=== PATIENT | female | born 2000 | race African-American/Black ===

== ENCOUNTER 2022-06-30 09:20 | Emergency (ER) | payer BC, SELFPAY ==
--- NOTE | ~2022-06-30 | XR_ITS ---
EXAMINATION: XR chest 2V DATE: 06/30/2022 09:38 INDICATION: Left upper chest pain. TECHNIQUE: Frontal and lateral views of the chest were obtained. COMPARISON: None. FINDINGS: The chest demonstrates clear lungs without pneumonia, pleural effusion, or pneumothorax. Th e heart size is normal. IMPRESSION: 1. No acute cardiopulmonary disease. Reviewed, dictated and finalized at location A. ECT GEOPHYSICIST
--- NOTE | 2022-06-30 09:22 | ECG_ITS ---
Measurements Intervals [place] Rate: 90 P: 69 MO: 152 QRS: 80 QRSD: 96 T: 50 QT: 335 QTc: 410 Interpretive Statements SINUS RHYTHM INCOMPLETE RIGHT BUNDLE BRANCH BLOCK BASELINE ARTIFACT- II, III, AVL, AVF BORDERLINE ECG NO PREVIOUS ECG AVAILABLE FOR COMPARISON Electronically Signed On 06-30-2022 14:05:12 [employer]READ CUTTER TENDER by Dung Llamas D.O.
[2022-06-30 09:26] VITALS: BP 117/78; PULSE 87; RESP 18; TEMP 37; O2SAT 100
[2022-06-30 10:18] LABS: Basophils Absolute Auto 0.1 K/mm3 (0.0-0.1); Eosinophils Absolute Auto 0.4 K/mm3 (0-0.3); Eosinophils Percent Auto 5.1 % (0-4.4); Hematocrit 39.9 % (37.0-47.0); Hemoglobin 13.2 g/dL (12.0-15.0); Immature Granulocyte Absolute 0.01 K/mm3 (0.00-0.031); Immature Granulocyte Percent A 0.1 % (0-0.5); Lymphocytes Absolute Auto 2.22 K/mm3 (0.9-3.2); Lymphocytes Percent Auto 27.7 % (18.3-44.2); Mean Corpuscular HGB Conc 33.1 g/dl (32-36); Mean Corpuscular Hemoglobin 29.9 pg (26-34); Mean Corpuscular Volume 90.5 fl (80-100); Mean Platelet Volume 9.8 fl (7.4-10.4); Monocytes Absolute Auto 0.5 K/mm3 (0.1-0.6); Monocytes Percent Auto 5.7 % (2.6-8.5); Neutrophils Absolute Auto 4.8 K/mm3 (1.3-6.7); Neutrophils Percent Auto 60.4 % (45.5-73.1); Platelet Count Result 326 k/mm3 (150-375); Red Blood Count 4.41 M/mm3 (4.2-5.4); Red Cell Distribution Width 12.9 % (11.5-14.5)
[2022-06-30 10:29] LABS: Alanine Aminotransferase 18 U/L (6-35); Albumin Level 4.5 g/dL (3.5-5.1); Alkaline Phosphatase 56 U/L (38-126); Anion Gap 5 mmol/L (8-16); Aspartate Amino Transferase 25 U/L (14-36); Blood Urea Nitrogen 10 mg/dL (7-17); Calcium 9.2 mg/dL (8.4-10.2); Carbon Dioxide 28 mmol/L (22-30); Chloride 101 mmol/L (98-107); Estimated CRCL calculation 78 ml/min; Estimated Glomerular Filt Rate > 60; Glucose 91 mg/dL (65-110); Lipase 24 U/L (23-300); Potassium 3.8 mmol/L (3.4-5.0); Sodium 134 mmol/L (137-145)
[2022-06-30 10:33] LABS: Prothrombin Time 12.6 Seconds (11.1-14.7)
[2022-06-30 10:34] LABS: Partial Thromboplastin Time 32.5 SECONDS (22.3-36.8)
[2022-06-30 10:40] LABS: Troponin I < 0.012 ng/mL (0.000-0.034)
[2022-06-30 11:24] LABS: D Dimer < 0.27 ug/mL (<0.48)
--- NOTE | 2022-06-30 11:38 | ED.CHESTPAIN ---
HPI - Chest Pain General Chief Complaint: Chest Pain Stated Complaint: chest pain Time Seen by Provider: 06/30/22 11:08 Source: patient and RN notes reviewed Mode of arrival: ambulatory Limitations: no limitations History of Present Illness HPI narrative: This is a 22-year-old female that presents to the emergency department for left-sided chest pain ongoing since yesterday. Reports the pain is sharp and intermittent in nature. It is worse with deep breathing. She tried taking Ibuprofen and Mylanta with little relief. Denies fever, cough, shortness of breath, or lower extremity edema. Related Data Allergies Allergy/AdvReac Type Severity Reaction Status Date / Time No Known Allergies Allergy Verified 06/30/22 11:54 Review of Systems Review of Systems: CONSTITUTIONAL: Denies fever CARDIOVASCULAR: Reports chest pain. Denies palpitations, or edema. RESPIRATORY: Denies cough or dyspnea. GASTROINTESTINAL: Denies abdominal pain, nausea, vomiting MUSCULOSKELETAL: Reports myalgia. All systems reviewed & are unremarkable except as noted in HPI and below PMFSH Past Medical History Medical History (Updated 06/30/22 @ 13:04 by Renea Silverman PA-C) No active medical problems Social History Social History (Updated 06/30/22 @ 11:43 by Renea Silverman PA-C) Smoking status: Never smoker Exam Narrative: GENERAL: Well-appearing, well-nourished, and in no acute distress. HEAD: Normocephalic, atraumatic. EYES: EOMI. CHEST: Clear to auscultation. No respiratory distress. No wheezes rales or rhonchi. Tender to palpation of the left, lateral upper chest wall HEART: Regular rate and rhythm. No murmur heard. Normal peripheral pulses. EXTREMITIES: Normal range of motion. No edema. SKIN: Warm, dry, no rash. NEURO: No focal deficits. Alert and oriented x3. PSYCH: Normal mood and affect Course Course Emergency Course: Patient updated on work-up. Resting comfortably. Vital Signs Vital signs: Vital Signs Temperature 98.6 F 06/30/22 09:26 Pulse Rate 87 06/30/22 09:26 Respiratory Rate 18 06/30/22 09:26 Blood Pressure 117/78 06/30/22 09:26 Pulse Oximetry 100 06/30/22 09:26 Oxygen Delivery Room Air 06/30/22 09:26 Temperature 98.6 F 06/30/22 09:26 Pulse Rate 72 06/30/22 11:51 Respiratory Rate 16 06/30/22 11:51 Blood Pressure 117/78 06/30/22 09:26 Pulse Oximetry 100 06/30/22 11:51 Oxygen Delivery Room Air 06/30/22 09:26 MDM - Chest Pain MDM Narrative Medical decision making narrative: Patient presents to the emergency department for left-sided chest pain ongoing since yesterday. Reports the pain is sharp and worse with breathing. She does have some chest wall tenderness. Her vitals are stable. CBC metabolic panel without concerning findings. EKG without concerning changes and baseline and 3-hour troponin are negative. D-dimer is not elevated. Chest x-ray without acute cardiopulmonary abnormality. Patient was updated on work-up. Resting comfortably. Her heart score is 0. Instructed to have follow-up with primary provider. She was given warnings to return to the ER Differential Diagnosis Differential diagnosis: Likely pneumothorax, atypical chest pain, costochondritis, chest pain and other (chest wall pain) Lab Data Attestation: I reviewed the patient's lab results. 06/30/22 10:13 06/30/22 10:13 Labs: Lab Results 06/30/22 06/30/22 06/30/22 Range/Units 10:13 10:13 10:13 WBC 8.0 (4.5-10.0) K/mm3 RBC 4.41 (4.2-5.4) M/mm3 Hgb 13.2 (12.0-15.0) g/dL Hct 39.9 (37.0-47.0) % MCV 90.5 (80-100) fl MCH 29.9 (26-34) pg MCHC 33.1 (32-36) g/dl RDW 12.9 (11.5-14.5) % Plt Count 326 (150-375) k/mm3 MPV 9.8 (7.4-10.4) fl Immature Gran % (Auto) 0.1 (0-0.5) % Neut % (Auto) 60.4 (45.5-73.1) % Lymph % (Auto) 27.7 (18.3-44.2) % [place] % (Auto) 5.7 (2.6-8.5) % Eos % (Auto) 5.1 H (0-4.4)
[2022-06-30 11:51] VITALS: PULSE 72; RESP 16; O2SAT 100
[2022-06-30 12:00] VITALS: PULSE 77; RESP 22; O2SAT 100
[2022-06-30] MEDS: KETOROLAC 30 MG/ML VIAL (*BKC) IM (12:08)
[2022-06-30] MEDS: ACETAMINOPHEN 500 MG TABLET 1000 MG PO (12:08)
[2022-06-30 12:43] LABS: Troponin I < 0.012 ng/mL (0.000-0.034)
== END 2022-06-30 13:40 | disposition home or self-care (01) ==
PROVIDERS: Emergency Medicine; Emergency Provider Physician Assistant
DX: R07.89 Other chest pain (principal); I45.10 Unspecified right bundle-branch block
CPT/HCPCS: 36415; 71046; 80053; 83690; 84484; 85025; 85380; 85610; 85730; 93005; 96372; 99284; A9270; J1885

== ENCOUNTER 2024-08-09 10:09 | Emergency (ER) | payer SELFPAY ==
--- NOTE | 2024-08-09 10:10 | ED.FEMALEGU ---
HPI - Female Genitourinary General Chief complaint: Urogenital-Female Stated complaint: Stomach Pain/Uti Symptoms Time Seen by Provider: 08/09/24 10:10 Source: patient Mode of arrival: ambulatory Limitations: no limitations History of Present Illness HPI Narrative: Jackelin is a 24-year-old female patient presenting to the clinic today with complaints possible UTI. She reports she has intermittent LUQ abdomen pain/hematuria x 2 days. Denies any fever or chills. No n/v/d. Does have some intermittent burning with urination. Reports that the pain is sharp in the left upper quadrant and comes and goes. Rates her pain at its worst 8/10. Related Data Home Medications ?Medication ?Instructions ?Recorded ?Confirmed ?Last Taken ?Type No Home Medications 08/09/24 08/09/24 Unknown History Allergies Allergy/AdvReac Type Severity Reaction Status Date / Time No Known Allergies Allergy Verified 08/09/24 10:18 Review of Systems Review of Systems: Pertinent positives per HPI. Patient denies any fever, chills, rash, headache, visual changes, dizziness, cough, runny nose, sore throat, shortness of breath, chest pain, palpitations, nausea, vomiting, diarrhea, constipation. PMFSH Past Medical History Medical History (Updated 08/09/24 @ 10:48 by Bam Thomas APRN) No active medical problems Social History Social History Smoking status: Never smoker Comments At the time of my signature, I reviewed and agree with the nursing past medical, surgical, social, and family history. There is no relevant family history pertinent to the patient complaint. Exam Narrative: General: Well-developed, well nourished, in no apparent distress. Head: Normocephalic, atraumatic. Cardio: Regular rate and rhythm, s1 and s2 normal, no murmur appreciated. Resp: Clear to auscultation bilaterally, no rhonchi, rales, wheezing or rubs. Abdomen: Soft, pliable, bowel sounds present in all quadrants, left upper quadrant-tender to palpation, no organomegly, no CVAT tenderness. Course Course Emergency Course: Portions of this record may have been created with voice recognition software. Level of Care: Express Care Visit Vital Signs Vital signs: Vital Signs Temperature 37.0 C 08/09/24 10:19 Pulse Rate 75 08/09/24 10:19 Respiratory Rate 18 08/09/24 10:19 Blood Pressure 125/84 08/09/24 10:19 Pulse Oximetry 100 08/09/24 10:19 Oxygen Delivery Room Air 08/09/24 10:19 Temperature 37.0 C 08/09/24 10:19 Pulse Rate 75 08/09/24 10:19 Respiratory Rate 18 08/09/24 10:19 Blood Pressure 125/84 08/09/24 10:19 Pulse Oximetry 100 08/09/24 10:19 Oxygen Delivery Room Air 08/09/24 10:19 Vital signs reviewed Transfer Transfered to: [facility] Transportation: Other (Private car) Transfer rationale: LUQ abdomen pain/hematuria/proteinurea. R/O obstructing ureterolithiasis Accepting physician: Madison Transfer comments: private car MDM - Female Genitourinary MDM Narrative Medical decision making narrative: At the time of visit patient is resting comfortably on the exam table. Patient appears to be nontoxic. Labs: Urinalysis positive for trace of leukocytes, 3+ blood, and 2+ protein. Bedside test was negative Plan: Recommend transfer to the ER for further evaluation to rule out obstructing ureterolithiasis. Patient agrees to transfer. Patient would like to be transfer to [facility] the emergency room. Contacted Madison at [facility] and report was given for continuity care and she accepts patient for transfer. Differential Diagnosis Differential diagnosis: Likely urinary tract infection, cystitis and other (Kidney stone, pyelonephritis, pancreatitis, colitis) Lab Data Labs: Lab Results 08/09/24 08/09/24 Range/Units 10:29 10:33 POC Urine Color Red POC Urine Clarity Cloudy POC Urine pH 6.0 POC Ur Specif Talent 1.015 POC Urine Protein 2+ (Negative) POC Ur Glucose (UA) Negative (Negative) POC Urine Ketones Negative (Negative) POC Urine Blood 3+ (Negative) POC Urine Nitrite Negative (Negative) POC Urine Bilirubin Negative (Negative) POC Urine Urobilinogen 0.2 POC U Leukocyte Esteras Trace (Negative) POC Urine HCG, Qual Negative (Negative) Discharge Plan Discharge Clinical Impression: Abdominal pain, LUQ Hematuria Qualifiers: Hematuria type: gross Qualified Code(s): R31.0 - Gross hematuria Proteinuria Qualifiers: Proteinuria type: unspecified Qualified Code(s): R80.9 - Proteinuria, unspecified Patient Disposition: Home, Self-Care Condition: Stable Patient Language: Korean Prescriptions: No Action No Home Medications Follow-up/Referrals: UNKNOWN,DOCTOR [Non-Staff] - Time of Disposition: 10:47 [facility] NIHSS nursing documentation: reviewed/agree
[2024-08-09 10:19] VITALS: BP 125/84; PULSE 75; RESP 18; TEMP 37; O2SAT 100
[2024-08-09 10:32] LABS: EDUAAPPEAR Cloudy; EDUABILI Negative (Negative); EDUABLOOD 3+ (Negative); EDUACOLOR1 Red; EDUAGLUCOSE Negative (Negative); EDUAKETONE Negative (Negative); EDUALEUKO Trace (Negative); EDUANITRATE Negative (Negative); EDUAPROTEIN 2+ (Negative); EDUASPGRAVITY 1.015; EDUAUROBILI 0.2
[2024-08-09 10:35] LABS: BEDSIDEPREGUCG Negative (Negative)
== END 2024-08-09 10:41 | disposition short-term general hospital (02) ==
PROVIDERS: Emergency Provider Nurse Practitioner Family
DX: R10.32 Left lower quadrant pain (principal); R31.0 Gross hematuria; R80.9 Proteinuria, unspecified
CPT/HCPCS: 81003; 81025; 99212; G0463

== ENCOUNTER 2024-08-09 11:06 | Emergency (ER) | payer SELFPAY ==
[2024-08-09 11:09] VITALS: BP 139/84; PULSE 76; RESP 15; TEMP 36.5; O2SAT 100
--- NOTE | 2024-08-09 12:09 | ED.FEMALEGU ---
HPI - Female Genitourinary General Chief complaint: Urogenital-Female Stated complaint: left flank pain Time Seen by Provider: 08/09/24 12:06 Source: patient Mode of arrival: ambulatory Limitations: no limitations History of Present Illness HPI Narrative: 24 years old female complaining of burning urination, blood in the urine noticed 3 days ago. Intermittent sharp, stabbing left lower quadrant, not at this time. Patient denies any fever, chills, nausea, vomiting, history of kidney stone. Patient is healthy otherwise. Related Data Allergies Allergy/AdvReac Type Severity Reaction Status Date / Time No Known Allergies Allergy Verified 08/09/24 10:18 Review of Systems Review of Systems: All systems reviewed & are unremarkable except as noted in HPI and below PMFSH Past Medical History Medical History No active medical problems Social History Social History Smoking status: Never smoker Exam Narrative: General appearance: Well-developed, well-nourished, looks comfortable, not in any pain or distress Skin: Normal color Head: Normocephalic, nontraumatic Eyes: Clear conjunctiva ENT: Oropharynx normal, ears normal, nose normal Neck: Supple, nontender Chest and respiratory: Airway patent, no respiratory distress, no accessory muscle use Heart: Regular rate/rhythm Abdomen: Soft, nontender, no organomegaly, quiet bowel sounds Vascular: Normal peripheral pulses, normal capillary refill. Musculoskeletal: Normal range of motion, nontender back Neurologic: Alert and oriented ?3, VARNISH COOKER is normal as tested, no gross motor deficit Course Vital Signs Vital signs: Vital Signs Temperature 36.5 C 08/09/24 11:09 Pulse Rate 76 08/09/24 11:09 Respiratory Rate 15 08/09/24 11:09 Blood Pressure 139/84 08/09/24 11:09 Pulse Oximetry 100 08/09/24 11:09 Oxygen Delivery Room Air 08/09/24 11:09 Temperature 36.5 C 08/09/24 11:09 Pulse Rate 81 08/09/24 12:19 Respiratory Rate 16 08/09/24 12:19 Blood Pressure 122/89 08/09/24 12:19 Pulse Oximetry 99 08/09/24 12:19 Oxygen Delivery Room Air 08/09/24 12:19 MDM - Female Genitourinary MDM Narrative Medical decision making narrative: Dysuria with hematuria Vital signs are stable Physical examination unremarkable Differential diagnosis urinary tract infection, kidney stone, Urinalysis today showed evidence of infection Discharged on Macrobid. Differential Diagnosis Differential diagnosis: Likely other (As above) Medical Records Attestation: I reviewed the patient's medical records. Lab Data Attestation: I reviewed the patient's lab results. Labs: Lab Results 08/09/24 Range/Units 12:17 Urine Color [place] H (Yellow) Urine Appearance Clear (Clear) Urine pH 5.5 (5.0-9.0) Ur Specific [place] 1.006 (1.001-1.035) Urine Protein 1+ H (Negative) mg/dL Urine Glucose (UA) Negative (Negative) mg/dL Urine Ketones Negative (Negative) mg/dL Ur Blood (Man) 3+ H (Negative) Urine Nitrate Negative (Negative) Urine Bilirubin Negative (Negative) Urine Urobilinogen 0.2 (<2.0) mg/dL Leukocyte Esterase Rfl 1+ H (Negative) WILY/UL Urine RBC >100 H (0-2) /hpf Urine WBC 21-50 H (0-3) /hpf Ur Squamous Epith Cells None seen (Few) /hpf Urine Bacteria None seen /hpf Urine Casts 0-2 Critical Care Time Critical Care Time Critical Care Time: No Discharge Plan Discharge Clinical Impression: Urinary tract infection Patient Disposition: Home, Self-Care Condition: Stable Instructions: Antibiotic Form, Urinary Tract Infection in Women (ED) Additional Instructions: Return if symptoms are worsening , call your family physician for appointment, take Tylenol, ibuprofen as as needed for aches and pain, continue home medications. If there is no improvement in 3-5 days to contact your family physician immediately for further evaluation Patient Language: [place] Prescriptions: New nitrofurantoin monohyd/m-cryst [Macrobid] 100 mg capsule 100 mg PO Q12H 5 Days Qty: 10 0RF Rx Instructions: must administer with a meal/food phenazopyridine [Pyridium] 200 mg tablet 200 mg PO TID PRN (Reason: pain) Qty: 6 0RF Follow-up/Referrals: PHYSICIAN,FUNNEL COATER [Primary Care Provider] -
[2024-08-09 12:19] VITALS: BP 122/89; PULSE 81; RESP 16; O2SAT 99
[2024-08-09 12:26] LABS: Bacteria Urine None Seen /hpf; Non Pathogenic Casts 0-2; RBC Urine >100 /hpf (0-2); Squamous Epithelial Cell Urine None Seen /hpf (Few); WBC Urine 21-50 /hpf (0-3)
[2024-08-09 12:32] LABS: Add Urine Microscopic? YES; Appearance Urine Clear (Clear); Bilirubin Urine Negative (Negative); Blood Urine 3+ (Negative); Color Urine Orange (Yellow); Glucose Urine UA Negative (Negative); Ketones Urine Negative (Negative); Leukocyte Esterase Ur 1+ LEU/UL (Negative); Nitrate Urine Negative (Negative); Protein Urine 1+ mg/dL (Negative); Specific Grav Ur 1.006 (1.001-1.035); Urobilinogen Urine 0.2 mg/dL (<2.0); pH Urine 5.5 (5.0-9.0)
[2024-08-09 12:58] VITALS: BP 120/82; PULSE 82; RESP 18; O2SAT 99
== END 2024-08-09 13:02 | disposition home or self-care (01) ==
PROVIDERS: Emergency Provider Emergency Medicine
DX: N39.0 Urinary tract infection, site not specified (principal)
CPT/HCPCS: 81001; 87086; 87186; 99283